=== PATIENT | female | born 1970 | race American Indian/Alaskan Native ===

== ENCOUNTER 2016-08-04 14:59 | Emergency (ER) | payer SELFPAY ==
[2016-08-04 16:11] VITALS: BP 145/79
[2016-08-04 17:49] LABS: Bilirubin,Urine NEG (Negative); Blood,Urine LG (Negative); Ketones,Urine TR mg/dL (Negative); Leukocyte Esterase,Urine MOD (Negative); Mucus,Urine 2+ /HPF; Nitrite,Urine POS (Negative); Urobilinogen,Urine < 2.0 mg/dL (<2.0)
[2016-08-04 17:50] LABS: RBC,Urine > 182.0 /HPF (0.0-6.0); WBC,Urine > 182.0 /HPF (0.0-6.0)
[2016-08-04] MEDS ORDERED: ROCEPHIN IM ONE (19:33)
[2016-08-04] MEDS ORDERED: XYLOCAINE 1% MPF 5 mL INFILTRATI ONE (19:33)
--- NOTE | 2016-08-04 19:38 | Emergency Department Report ---
ED Female HPI - General Chief complaint: Urogenital-Female Stated complaint: BLOOD IN URINE Time Seen by Provider: 08/04/16 19:22 Source: patient Mode of arrival: Ambulatory Limitations: No Limitations - History of Present Illness Initial comments: Patient is a 46-year-old female presents to ED with complaints of suprapubic pain, dysuria, bloody urine for the past 2 days. Patient reports that she is prone to getting recurrent UTIs. Also reports some pain to the right flank. But denies any other symptoms. MD Complaint: dysuria Onset/Timin -: Gradual, days(s) Location: suprapubic Radiation: non-radiating Severity: moderate Severity scale (0 -10): 7 Quality: cramping, dull, burning Consistency: constant Worsens with: none Are you Now?: No Associated Symptoms: denies other symptoms, abdominal pain (suprapubic), dysuria , hematuria. denies: vaginal discharge, vaginal bleeding, nausea/vomiting, headaches, loss of appetite, rash - Related Data Sexually active: Yes Previous Rx's Medication Instructions Recorded Last Taken Type Ciprofloxacin HCl [Ciprofloxacin 500 mg PO Q12HR #10 tab 08/04/16 Unknown Rx TAB] Fluconazole [Diflucan TAB] 150 mg PO ONCE #1 tablet 08/04/16 Unknown Rx Ibuprofen [Motrin] 800 mg PO Q8HR PRN #20 tablet 08/04/16 Unknown Rx Allergies Allergy/AdvReac Type Severity Reaction Status Date / Time No Known Allergies Allergy Unverified 08/04/16 16:07 ED Review of Systems ROS: Stated complaint: BLOOD IN URINE Other details as noted in HPI Constitutional: denies: chills, fever Respiratory: denies: cough, shortness of breath, wheezing Cardiovascular: denies: chest pain, palpitations Gastrointestinal: abdominal pain (suprapubic). denies: nausea, vomiting, diarrhea, constipation, hematemesis, hematochezia Skin: denies: rash, lesions Neurological: denies: headache, weakness, paresthesias Psychiatric: denies: anxiety, depression ED Past Medical Hx - Past Medical History Previous Medical History?: No - Surgical History Additional Surgical History: RIGHT ECTOPIC. CYST REMOVED RIGHT HAND - Social History Smoking Status: Light Tobacco Smoker Substance Use Type: None - Medications Home Medications: Home Medications Medication Instructions Recorded Confirmed Last Taken Type Ciprofloxacin HCl [Ciprofloxacin 500 mg PO Q12HR #10 tab 08/04/16 Unknown Rx TAB] Fluconazole [Diflucan TAB] 150 mg PO ONCE #1 tablet 08/04/16 Unknown Rx Ibuprofen [Motrin] 800 mg PO Q8HR PRN #20 tablet 08/04/16 Unknown Rx ED Physical Exam - General Limitations: No Limitations General appearance: alert, in no apparent distress - Head Head exam: Present: atraumatic, normocephalic - Respiratory Respiratory exam: Present: normal lung sounds bilaterally. Absent: respiratory distress - Cardiovascular Cardiovascular Exam: Present: regular rate, normal rhythm. Absent: systolic murmur, diastolic murmur, rubs, gallop - GI/Abdominal GI/Abdominal exam: Present: soft, tenderness (suprapubic), normal bowel sounds, other (no CVA tenderness noted). Absent: distended, guarding, rebound, rigid - Back Exam Back exam: Present: normal inspection, full ROM. Absent: CVA tenderness (R), CVA tenderness (L) - Neurological Exam Neurological exam: Present: alert, oriented X3 - Psychiatric Psychiatric exam: Present: normal affect, normal mood ED Course Vital Signs 08/04/16 16:07 Temperature 98.4 F Pulse Rate 80 Respiratory 17 Rate Blood Pressure 145/79 O2 Sat by Pulse 100 Oximetry ED Medical Decision Making - Medical Decision Making Patient is resting comfortably. Vital signs within normal range. We will administer Rocephin 1 g the ED room this patient has recurrent UTIs and UA reveals bloody urine. We'll also start patient on Cipro 500 mg by mouth twice a day 5 days. Advised follow-up with urologist in 2-3 days. - Differential Diagnosis UTI, cystitis, IC, pyelonephritis, hematouria, dysuria Critical care attestation.: If time is entered above; I have spent that time in minutes in the direct care of this critically ill patient, excluding procedure time. ED Disposition Clinical Impression: UTI (urinary tract infection) Qualifiers: Urinary tract infection type: acute cystitis Hematuria presence: with hematuria Qualified Code(s): N30.01 - Acute cystitis with hematuria Disposition: DISCHARGED TO HOME OR SELFCARE Is pt being admited?: No Does the pt Need Aspirin: No Condition: Stable Prescriptions: Ciprofloxacin HCl [Ciprofloxacin TAB] 500 mg PO Q12HR #10 tab Fluconazole [Diflucan TAB] 150 mg PO ONCE #1 tablet Ibuprofen [Motrin] 800 mg PO Q8HR PRN #20 tablet PRN Reason: Pain Referrals: ALLYN ESTRADA MD [Referring] - 3-5 Days Time of Disposition: 19:40
== END 2016-08-04 20:06 | disposition home or self-care (01) ==
LOC: ED 14:59
DX: N30.01 Acute cystitis with hematuria (principal); F17.200 Nicotine dependence, unspecified, uncomplicated
CPT/HCPCS: 36415; 81001; 84703; 96372; 99283; J0696